=== PATIENT | male | born 1980 | race Caucasian/White ===

== ENCOUNTER 2021-09-08 11:51 | Emergency (ER) | payer OTHER ==
[~2021-09-08] VITALS: Ht 175.3 cm; Wt 99.8 kg
[2021-09-08 12:28] LABS: APPEARANCE,URINE CLEAR (CLEAR); BILIRUBIN,URINE NEGATIVE (NEGATIVE); COLOR,URINE DARK YELLOW (YELLOW); GLUCOSE, URINE (UA) NEGATIVE (NEGATIVE); KETONES,URINE 40 mg/dL (NEGATIVE); LEUKOCYTE ESTERASE ,URINE NEGATIVE (NEGATIVE); NITRATE,URINE NEGATIVE (NEGATIVE); OCCULT BLOOD,URINE TRACE-INTACT (NEGATIVE); PH,URINE 6.5 (5.0-8.0); PROTEIN,URINE TRACE mg/dL (NEGATIVE)
[2021-09-08] MEDS ORDERED: 0.9%NACL 1000ML 1,000 ML IV ONE (12:30)
[2021-09-08 12:34] LABS: BASOPHILS % (AUTO) 0.2 % (0.0-5.0); EOSINOPHILS % (AUTO) 0.2 % (0.0-8.0); HEMATOCRIT 40.5 % (42-54); LYMPHOCYTES % (AUTO) 10.3 % (21.0-51.0); MEAN CORPUSCULAR HEMOGLOBIN 32.9 pg (27.0-33.0); MEAN CORPUSCULAR HGB CONC 35.8 g/dL (32.0-36.0); MEAN CORPUSCULAR VOLUME 91.8 fL (79-99); MONOCYTES % (AUTO) 3.7 % (3.0-13.0); NEUTROPHILS % (AUTO) 85.4 % (40.0-77.0); PLATELET COUNT (AUTO) 300 K/uL (130-400); RED BLOOD CELL COUNT(AUTO) 4.41 MIL/uL (4.50-6.20); RED CELL DISTRIBUTION WIDTH 11.6 % (11.0-15.5); WHITE BLOOD COUNT (AUTO) 11.6 K/uL (4.8-10.8)
[2021-09-08 12:50] LABS: ALBUMIN 3.6 g/dL (3.5-5.0); BILIRUBIN,TOTAL 0.5 mg/dL (0.2-1.0); POTASSIUM 3.8 mmol/L (3.5-5.1); TOTAL PROTEIN, SERUM 7.9 g/dL (6.0-8.3)
[2021-09-08 12:52] LABS: BACTERIA,URINE Rare /HPF (None Seen); SQUAMOUS EPITHELIAL CELL,UR 0-2 /HPF (0-2); WBC,URINE None Seen /HPF (0-1)
[2021-09-08] MEDS ORDERED: ONDANSETRON 4MG INJ IVP ONE (14:00)
[2021-09-08] MEDS ORDERED: 0.9% NACL 500ML IV.SOLN 500 ML IV ONE (14:00)
[2021-09-08] MEDS ORDERED: LIDOCAINE HCL 2% VISCOUS 15 ML UDCUP PO ONE (14:00)
[2021-09-08] MEDS ORDERED: MAG/ALUM/SIMETH 30 ML UDCUP PO ONE (14:00)
[2021-09-08] MEDS ORDERED: FAMOTIDINE 20MG VIAL IV ONE (14:00)
[2021-09-08] MEDS ORDERED: IOHEXOL 350 MG/ML 100ML INFUS..BTL IV ONE (14:57)
[2021-09-08] MEDS ORDERED: FAMO-136 PO (16:20)
[2021-09-08] MEDS ORDERED: OMEP20TA20 PO (16:20)
[2021-09-08 16:24] VITALS: BP 129/74
== END 2021-09-08 16:46 | disposition home or self-care (01) ==
LOC: EDH 11:51
DX: K21.9 Gastro-esophageal reflux disease without esophagitis (principal); E86.9 Volume depletion, unspecified; Z88.0 Allergy status to penicillin; Z79.899 Other long term (current) drug therapy
CPT/HCPCS: 36415; 74177; 80053; 81001; 83690; 84484; 85025; 93005; 96361; 96374; 96375; 99285; J2405; J3490; J7030; J7040; Q9967